=== PATIENT | female | born 1990 | race Two or more races ===

== ENCOUNTER 2019-01-07 07:20 | Inpatient (IN) | payer OTHER ==
[2019-01-06 11:36] VITALS: BMI 42.3
[2019-01-07] MEDS ORDERED: BUPIVACAINE HCL/PF 0.5% (5MG/ML) 10 ML VIAL ONE (08:04)
--- NOTE | 2019-01-07 08:23 | HP ---
Admitting History and Physical - Admission Chief Complaint: Morbid obesity History Source: Patient Limitations to Obtaining History: No Limitations - Past Medical History ...LMP: 12/06/18 - Smoking History Smoking history: Never smoked Have you smoked in the past 12 months: No - Alcohol/Substance Use Hx Alcohol Use: Yes (SOCIAL) Home Medications - Allergies Allergies/Adverse Reactions: Allergies Allergy/AdvReac Type Severity Reaction Status Date / Time No Known Drug Allergies Allergy Verified 01/06/19 11:22 - Home Medications Home Medications: Ambulatory Orders Multivit with Calcium,Iron,Min [One Daily Women's] 1 each PO DAILY 01/06/19 Famotidine [Pepcid] 20 mg PO BID #60 tablet 01/07/19 Oxycodone HCl/Acetaminophen [Percocet 5-325 mg Tablet] 1 - 2 tab PO Q6H #28 tab MDD 4 01/07/19 Family Disease History - Family Disease History Family History: Denies Review of Systems - Review of Systems Constitutional: denies: Chills, Fever Neck: reports: No Symptoms Cardiovascular: reports: No Symptoms Respiratory: reports: No Symptoms Gastrointestinal: reports: No Symptoms Neurological: reports: No Symptoms Pain Intensity: 0 Physical Examination Vital Signs: Vital Signs Temperature 98.4 F 01/07/19 08:03 Pulse Rate 71 01/07/19 08:03 Respiratory Rate 20 01/07/19 08:03 Blood Pressure 126/70 01/07/19 08:03 O2 Sat by Pulse Oximetry (%) 98 01/07/19 08:08 Constitutional: Yes: Calm Neck: Yes: WNL Cardiovascular: Yes: WNL Respiratory: Yes: WNL Gastrointestinal: Yes: Soft, Abdomen, Obese. No: Tenderness Neurological: Yes: Alert, Oriented Problem List - Problems (1) Morbid obesity due to excess calories Code(s): E66.01 - MORBID (SEVERE) OBESITY DUE TO EXCESS CALORIES (2) BMI 40.0-44.9, adult Code(s): Z68.41 - BODY MASS INDEX (BMI) 40.0-44.9, ADULT Assessment/Plan Laparoscopic possible open vertical sleeve gastrectomy possible liver biopsy, upper endoscopy
[2019-01-07] MEDS ORDERED: ceFAZolin SODIUM 1 GM VIAL ONE ×3 (08:38→10:07)
[2019-01-07] MEDS ORDERED: SODIUM CHLORIDE 0.9% P/F 10 ML VIAL IJ ONE (08:38)
[2019-01-07] MEDS ORDERED: DEXAMETHASONE SOD PHOSPHATE 4 MG/1 ML VIAL ONE (08:38)
[2019-01-07] MEDS ORDERED: PROPOFOL 20 ML ONE ×2 (08:38→09:56)
[2019-01-07] MEDS ORDERED: KETOROLAC TROMETHAMINE 30 MG/1 ML VIAL ONE (08:38)
[2019-01-07] MEDS ORDERED: LIDOCAINE HCL/PF 2% SDV 5ML VIAL ONE (08:38)
[2019-01-07] MEDS ORDERED: ROCURONIUM BROMIDE 50 MG/5 ML VIAL ONE (08:38)
[2019-01-07] MEDS ORDERED: ONDANSETRON 4 MG/2 ML VIAL ONE (08:38)
[2019-01-07] MEDS ORDERED: ROPIVACAINE HCL 0.5% 30ML VIAL ONE (08:41)
[2019-01-07] MEDS ORDERED: MIDAZOLAM HCL 2 MG/2 ML SINGLE DOSE VIAL ONE ×2 (08:43)
[2019-01-07] MEDS ORDERED: BUPIVACAINE HCL/PF 0.5% (5MG/ML) 10 ML VIAL IJ ONE ×2 (08:57→10:19)
[2019-01-07] MEDS ORDERED: KETAMINE HCL 200 MG/20 ML VIAL ONE (09:41)
[2019-01-07] MEDS ORDERED: ceFAZolin SODIUM 1 GM VIAL IVPB ONE (10:07)
[2019-01-07] MEDS ORDERED: MAGNESIUM SULF 50% (8.12 MEQ/2 ML-1 GM VIAL) ONE (10:26)
[2019-01-07] MEDS ORDERED: NEOSTIGMINE METHYLSULFATE 0.5 MG/ML - 10 ML MDV ONE (10:26)
[2019-01-07] MEDS ORDERED: GLYCOPYRROLATE 0.2 MG/1 ML VIAL ONE ×2 (10:28→11:01)
[2019-01-07] MEDS ORDERED: ePHEDrine SULFATE 50 MG/1 ML AMPULE ONE (10:29)
--- NOTE | 2019-01-07 11:16 | OP ---
Operative Note - Note: Operative Date: 01/07/19 Pre-Operative Diagnosis: Morbid obesity. BMI 42.3 Operation: Laparoscopic vertical sleeve gastrectomy. laparoscopic wedge liver biopsy Post-Operative Diagnosis: Same as Pre-op (as well as hepatomegaly) Surgeon: Mina Sanchez Box Car Bracer: Amara Judd Anesthesia: General Specimens Removed: Greater curvature of stomach. Liver biopsy Estimated Blood Loss (mls): 30 Drains & Tubes with Location: 36 fr Bougie Operative Report Dictated: Yes
[2019-01-07] MEDS: METOCLOPRAMIDE HCL INJECTION 10 MG/2 ML VIAL IVPUSH SCH ×3 (11:50→23:05)
[2019-01-07 12:06] LABS: HEMATOCRIT 40.1 % (32.4-45.2); HEMOGLOBIN 13.2 GM/dL (10.7-15.3); MCH 27.6 pg (25.7-33.7); MCHC 32.9 g/dl (32.0-36.0); MEAN PLT VOLUME 9.3 fl (7.5-11.1); PLATELET COUNT 257 K/MM3 (134-434); RBC 4.77 M/mm3 (3.60-5.2); RDW 13.8 % (11.6-15.6); WHITE BLOOD COUNT 10.2 K/mm3 (4.0-10.0)
[2019-01-07] MEDS: ONDANSETRON 4 MG/2 ML VIAL IVPUSH SCH ×3 (12:10→23:00)
[2019-01-07] MEDS ORDERED: HYDROmorphone HCl 2 MG/ML VIAL ONE (12:26)
--- NOTE | 2019-01-07 12:27 | SPEC ---
DATE OF OPERATION: 01/07/2019 SURGEON: Mina Sanchez MD DEVELOPMENTAL TRAINING COUNSELOR: GAEL Castro PREOPERATIVE DIAGNOSES: 1. Morbid obesity. 2. Body mass index 42.3. POSTOPERATIVE DIAGNOSES: 1. Morbid obesity. 2. Body mass index 42.3. 3. Hepatomegaly. PROCEDURES: 1. Laparoscopic vertical sleeve gastrectomy. 2. Laparoscopic wedge liver biopsy. SPECIMENS: 1. Greater curvature of the stomach. 2. Wedge liver biopsy. ESTIMATED BLOOD LOSS: 30 mL. DRAINS: None. ANESTHESIA: GET. BOUGIE SIZE: 36-Czech. REASON FOR PROCEDURE: This is a 28-year-old female who presents for weight loss options. After describing different options, she decided to proceed with a laparoscopic, possible open, vertical sleeve gastrectomy, possible liver biopsy, and upper endoscopy. RISKS AND BENEFITS: After describing the different options for weight loss management, the patient decided to proceed with a laparoscopic, possible open vertical sleeve gastrectomy. The patient was seen by the respective subspecialties and cleared for surgery. The risks and benefits of the procedure were explained. These included bleeding, infection, hernia, MN, DVT, PE, injury to surrounding structures including the liver, colon, bowel, spleen, esophagus, vessel injury, nerve injury, weight regain, gastric leak, staple line leak, sleeve leak, obstruction, vitamin deficiency, hair loss and as some of the possible complications. The patient understood and signed informed consent. DESCRIPTION OF PROCEDURE: The patient was placed supine on the operating room table. The patient underwent general endotracheal intubation. The arms were brought out at 90 degrees and secured. A footboard was placed and the legs were secured laterally with padding. The abdomen was prepped and draped in the usual sterile fashion. A timeout was performed. An incision was made in the left upper quadrant and a Veress needle inserted. Pneumoperitoneum was established. Subsequently, the Veress needle was removed and a 5-mm trocar was placed under direct visualization with the laparoscope. The laparoscopic camera was then inserted and inspection of the abdominal cavity was performed. An incision was then made in the supraumbilical area and a 15-mm trocar was placed under direct visualization. A 5-mm trocar was then placed in the right upper quadrant and a 5-mm trocar was placed below the left subcostal margin. A stab wound was made in the subxiphoid area and a Manisha clamp inserted and removed to dilate the tract. A Katarzyna liver retractor was inserted. The post was secured at the bedside by the nursing staff. The patient was placed in steep reverse Trendelenburg position and the Katarzyna liver retractor was used to secure the liver towards the anterior abdominal wall. The pylorus was identified and 6 cm proximal to it, the lesser sac was entered using the LigaSure device. All lateral attachments to the greater curvature of the stomach, including the short gastric vessels, were ligated using the LigaSure device toward the gastrosplenic and gastrophrenic ligaments. Once this was done in its entirety, it was confirmed that all tubes within the nasal or oropharyngeal cavity, including a temperature probe, was removed by Anesthesia. The bougie was then inserted by Anesthesia. Transection of the stomach was then begun staying adjacent to the bougie but away from the angularis. Transection of the stomach was performed near the portion of the stomach where the lesser sac was entered. Two laparoscopic Endo-CRUZ black marychuy were used at this location. Laparoscopic Endo CRUZ purple staple loads were then used for the remainder of the transection until the greater curvature of the stomach was fully transected. This was done staying close to the bougie. Care was taken to stay away from the angle of His cephalad. The staple line was then inspected. Hemostasis was identified. A leak test was then performed. It was clamped distally to the staple line. Irrigation solution was placed in the left upper quadrant and air was insufflated by Anesthesia into the sleeve. No leaks were identified. No obstruction was identified. This was done through the entirety of the staple line. In addition, an upper endoscopy was performed. The endoscope was placed into the patients mouth and the entirety of the esophagus, GE junction, gastric pouch and staple line were inspected. No obstruction or leak was noted. The stomach was suctioned and the endoscope removed fully intact. At this point, the irrigation solution was suctioned and again, hemostasis was noted. A wedge liver biopsy was then performed. The left lobe of the liver was identified and a portion of the edge was grasped. Using electrocautery, a wedge of the liver was excised. This was removed and sent off the field as specimen. Hemostasis at the site of the wedge liver biopsy was attained using electrocautery. The 15-mm supraumbilical trocar was then removed and the greater curvature specimen removed from the site using a sponge stick cannon. The specimen was inspected and a Veress needle inserted. The specimen insufflated adequately and no leak was identified. The staple line was noted to be intact. A Kentrell-Jane device was then used to close the fascia with a 0 Vicryl suture at the site. Again, hemostasis was noted. The Katarzyna liver retractor was then removed under direct visualization. Pneumoperitoneum was desufflated and the fascial sutures were secured. Hemostasis was noted at all incision sites and Marcaine was injected at all incision sites. All incision sites were closed using 4-0 Biosyn. Sterile dressings were applied. The patient tolerated the procedure well and was transferred to the recovery room in stable condition. The patient was transferred to telemetry for further monitoring. Alex FIELDS/[id number]
[2019-01-07] MEDS: HYDROmorphone HCl 2 MG/ML VIAL IVPB PRN (12:28)
[2019-01-07 12:39] LABS: ALBUMIN 3.6 g/dl (3.4-5.0); ALK PHOS 60 U/L (45-117); ANION GAP 7 MMOL/L (8-16); BILIRUBIN,TOTAL 0.2 mg/dL (0.2-1); BLOOD UREA NITROGEN 6 mg/dL (7-18); CALCIUM 8.6 mg/dL (8.5-10.1); CHLORIDE 106 mmol/L (98-107); CO2 28 mmol/L (21-32); CREATININE 0.9 mg/dL (0.55-1.3); GLUCOSE,RANDOM 135 mg/dL (74-106); SGOT/AST 23 U/L (15-37); SGPT/ALT 26 U/L (13-61); SODIUM 140 mmol/L (136-145); TOT PROT 6.8 g/dl (6.4-8.2)
[2019-01-07] MEDS: ACETAMINOPHEN 1000 MG/100 ML VIAL (NON FORMULARY) IVPB SCH ×3 (12:45→23:04)
--- NOTE | 2019-01-07 12:45 | SURG ---
Surgery Optometrist Note Optometrist: Amara Judd PA-C Date of Service: 01/07/19 Diagnosis: Morbid obesity. BMI 42.3 Procedure: Laparoscopic vertical sleeve gastrectomy. laparoscopic wedge liver biopsy I was present for the entirety of the operative procedure. For further detail, please refer to operative report. Visit type - Case Type Case Type: Scheduled - Emergency Emergency Visit: No - New patient This patient is new to me today: Yes Date on this admission: 01/07/19
[2019-01-07] MEDS: SODIUM CHLORIDE 1,000 ML IV SCH (13:30)
[2019-01-07] MEDS: ENOXAPARIN NA (PORCINE) 40 MG/0.4 ML DISP.SYRIN SQ SCH (23:00)
[2019-01-07] MEDS: FAMOTIDINE 20 MG/50 ML IVPB 20 MG/50 ML MG IVPB SCH (23:01)
[2019-01-08] MEDS: ONDANSETRON 4 MG/2 ML VIAL IVPUSH SCH ×5 (00:58→15:47)
[2019-01-08] MEDS: HYDROmorphone HCl 2 MG/ML VIAL IVPB PRN ×2 (02:45→10:24)
[2019-01-08] MEDS: ACETAMINOPHEN 1000 MG/100 ML VIAL (NON FORMULARY) IVPB SCH (05:20)
[2019-01-08] MEDS: METOCLOPRAMIDE HCL INJECTION 10 MG/2 ML VIAL IVPUSH SCH ×3 (05:22→17:09)
[2019-01-08 07:40] LABS: HEMATOCRIT 36.3 % (32.4-45.2); HEMOGLOBIN 11.9 GM/dL (10.7-15.3); MCH 27.5 pg (25.7-33.7); MCHC 32.9 g/dl (32.0-36.0); MEAN CELL VOLUME 83.7 fl (80-96); PLATELET COUNT 270 K/MM3 (134-434); RBC 4.34 M/mm3 (3.60-5.2); RDW 13.9 % (11.6-15.6); WHITE BLOOD COUNT 7.7 K/mm3 (4.0-10.0)
[2019-01-08 08:04] LABS: ALBUMIN 3.2 g/dl (3.4-5.0); ALK PHOS 53 U/L (45-117); ANION GAP 6 MMOL/L (8-16); BILIRUBIN,TOTAL 0.6 mg/dL (0.2-1); BLOOD UREA NITROGEN 4 mg/dL (7-18); CHLORIDE 108 mmol/L (98-107); CO2 27 mmol/L (21-32); CREATININE 0.6 mg/dL (0.55-1.3); GLUCOSE,RANDOM 81 mg/dL (74-106); SGOT/AST 29 U/L (15-37); SGPT/ALT 32 U/L (13-61); SODIUM 141 mmol/L (136-145); TOT PROT 6.1 g/dl (6.4-8.2)
--- NOTE | 2019-01-08 08:07 | PN ---
Progress Note (short form) - Note Progress Note: 28yo F s/p lap sleeve gastrectomy, seen and examined at bedside. Pt states that her abd pain is controlled, admits to some nausea and vomiting overnight with pink vomitus. Pt denies fever, chills overnight. Pt ambulating and urinating well. Last Vital Signs Temp Pulse Resp BP Pulse Ox 98.8 F 79 20 131/66 100 01/08/19 05:37 01/08/19 05:37 01/08/19 05:37 01/08/19 05:37 01/07/19 21:00 PE: Gen: A&O x3 Resp: breathing comfortably Abd: soft, nondistended, mild diffuse tenderness, incisions clean with no erythema or discharge. Ext: no edema <Brendon Sood - Last Filed: 01/08/19 08:03> - Note Progress Note: Agree POD 1 AVSS UGI: no leak/no obstruction Clears Discharge home <Mina Sanchez - Last Filed: 01/08/19 12:54> Problem List - Problems (1) Morbid obesity due to excess calories Assessment/Plan: Plan -will follow up AM labs and Upper GI -will advance to bariatric diet if Upper GI good -pain control -oob/ambulate -most likely discharge late afternoon/early evening Code(s): E66.01 - MORBID (SEVERE) OBESITY DUE TO EXCESS CALORIES <Brendon Sood - Last Filed: 01/08/19 08:03> - Problems (1) Morbid obesity due to excess calories Code(s): E66.01 - MORBID (SEVERE) OBESITY DUE TO EXCESS CALORIES (2) BMI 40.0-44.9, adult Code(s): Z68.41 - BODY MASS INDEX (BMI) 40.0-44.9, ADULT <Mina Sanchez - Last Filed: 01/08/19 12:54>
[2019-01-08] MEDS: ENOXAPARIN NA (PORCINE) 40 MG/0.4 ML DISP.SYRIN SQ SCH (10:12)
[2019-01-08] MEDS: FAMOTIDINE 20 MG/50 ML IVPB 20 MG/50 ML MG IVPB SCH (10:12)
[2019-01-08] MEDS: SODIUM CHLORIDE 1,000 ML IV SCH (11:42)
[2019-01-08] MEDS ORDERED: oxyCODONE HCL 5 MG TABLET PO PRN (12:39)
[2019-01-08] MEDS ORDERED: SODIUM CHLORIDE 1,000 ML IV SCH (12:45)
[2019-01-08 15:43] VITALS: BP 142/88; PULSE 63; TEMP 98.8
[2019-01-08 17:09] LABS: HEMATOCRIT 37.1 % (32.4-45.2); MCH 27.5 pg (25.7-33.7); MCHC 32.3 g/dl (32.0-36.0); MEAN CELL VOLUME 85.1 fl (80-96); MEAN PLT VOLUME 9.4 fl (7.5-11.1); PLATELET COUNT 240 K/MM3 (134-434); RBC 4.36 M/mm3 (3.60-5.2); RDW 13.9 % (11.6-15.6); WHITE BLOOD COUNT 6.4 K/mm3 (4.0-10.0)
--- NOTE | 2019-01-08 19:45 | PATH ---
Surgical Pathology Report Patient Name: [facility]. Rec. #: [id number] /Age/Gender: 1990 (Age: 28) / F Account: [id number] Location: 4 W TELEMETRY U Taken: 01/07/2019 Received: 01/07/2019 Reported: 01/08/2019 Physicians: Mina Sanchez M.D. Specimen(s) Received A: GREATER CURVATURE STOMACH B: LIVER BIOPSY Clinical History Morbid obesity Final Diagnosis A. STOMACH, GREATER CURVATURE, LAPAROSCOPIC VERTICAL SLEEVE GASTRECTOMY: PORTION OF STOMACH WITH MILD CHRONIC GASTRITIS. IMMUNOHISTOCHEMICAL STAIN FOR H. PYLORI IS NEGATIVE. B. LIVER, BIOPSY: LIVER PARENCHYMA WITH MINIMAL STEATOSIS (< 5%). NO INCREASE IN IRON AND FIBROSIS ON PERFORMED SPECIAL STAINS (IRON AND TRICHROME). Electronically Signed Connie Corbett M.D. Gross Description A. Received in formalin, labeled "greater curvature of stomach," is a 68 gram, 16.0 x 3.0 x 2.5 cm. portion of stomach with a stapled margin of resection. The serosa is arechiga-pearson with minimal attached fat. The mucosa is arechiga-pink with normal folds. No mucosal masses are identified. Plaster Form Maker sections are submitted in one cassette. B. Received in formalin labeled "liver biopsy," is a 3.0 x 1.4 x 0.6 cm arechiga portion of soft tissue, consistent with a liver biopsy. The specimen is bisected and entirely submitted in one cassette. DL/01/07/2019 saudi/01/07/2019
== END 2019-01-08 18:36 | disposition home or self-care (01) | DRG 403 ==
LOC: JSAMEDAYSX 07:20 → J4W 13:55
PROVIDERS: ADMIT Surgery; ATTEND Surgery
PROC: 0DB64Z3 Excision of Stomach, Percutaneous Endoscopic Approach, Vertical (ICD-10-PCS; principal; 2019-01-07 09:00)
PROC: 0FB24ZX Excision of Left Lobe Liver, Percutaneous Endoscopic Approach, Diagnostic (ICD-10-PCS; 2019-01-07 09:00)
PROC: 0DJ08ZZ Inspection of Upper Intestinal Tract, Via Natural or Artificial Opening Endoscopic (ICD-10-PCS; 2019-01-07 09:00)
DX: E66.01 Morbid (severe) obesity due to excess calories (principal); Z68.41 Body mass index [BMI] 40.0-44.9, adult; R16.0 Hepatomegaly, not elsewhere classified
CPT/HCPCS: 36415; 74241-TC-FY; 80053; 84703; 85027; 86850; 86900; 86901; 88305-TC; 94010; 94760; J0131; J7030